=== PATIENT | male | born 1965 | race Caucasian/White ===

== ENCOUNTER 2020-08-06 19:38 | Emergency (ER) | payer BC, SELFPAY ==
[2020-08-06 19:40] VITALS: BP 144/92; PULSE 101; RESP 16; TEMP 35.9; O2SAT 99; BMI 22.4
--- NOTE | 2020-08-06 19:56 | ED.VIS.GEN ---
History of Present Illness Chief Complaint: Wound Detail of Chief Complaint: Chin wound Informant: Patient Onset: Days Narrative: Patient reports having MRSA drained from a wound on his chin several years ago. He continues to have intermittent drainage from that spot. 2 days ago the drainage stopped and the area has become more swollen. He believes this is consistent with another MRSA infection. He denies fever or chills. Past Medical History - Allergies and Home Meds Allergies/Adverse Reactions: Allergies No Known Allergies Allergy (Verified 08/06/20 19:39) Past Medical History: - - MRSA infection Lives: Spouse/ Significant Other Smoking Status: Current every day smoker Review of Systems General: Denies: Chills, Fever Eyes: Denies: Visual changes - bilaterally ENT: Denies: Bilateral ear pain Cardiovascular: Denies: Chest pain Respiratory: Denies: Dyspnea, Cough Gastrointestinal: Denies: Abdominal pain, Nausea, Vomiting, Diarrhea Musculoskeletal: Denies: Extremity Pain Skin: Reports: Wounds Neurological: Denies: Headache Hematologic: Denies: Easy bruising, Easy bleeding Allergy: Denies: Uticaria Physical Exam Vital Signs/Narrative: Vital Signs Temp Pulse Resp BP Pulse Ox 08/06/20 19:40 96.6 F L 101 H 16 144/92 H 99 Inital Vital Signs reviewed: Yes General: Well nourished, Well developed Head: Normocephalic ENT: Moist mucous membranes, - - Cutaneous abscess over the anterior chin measuring approximately 1 cm in diameter. No fluctuance noted at this time. Patient does have a full robison making visualization difficult. No obvious signs of cellulitis. Neck: Supple Cardiovascular: Regular rate, Regular rhythm, No murmurs Respiratory: No distress, CTA bilaterally Abdomen: Soft, Nontender Neurological: Alert, Oriented x3 Psychological: Normal affect Diagnostic/Tx/Re-eval - Medical Decision Making Patient be treated with Bactrim and Keflex, first doses given here. ED Disposition - Plan for ED Patient: Disposition: Home or Assisted Living Diagnosis: Abscess Instructions: ED Abscess Antibiotic Treatment Only Prescriptions: Smz/Tmp Ds [Bactrim Ds] 1 tab PO BID #20 tab Transmission Status: Pending to [facility] Cephalexin [Keflex] 500 mg PO Q6 #40 cap Transmission Status: Pending to [facility]
[2020-08-06] MEDS: Cephalexin 250 MG Capsule 500 MG PO (20:21)
[2020-08-06] MEDS: Smz/Tmp Ds Tablet 1 TABLET PO (20:21)
== END 2020-08-06 20:24 | disposition home or self-care (01) ==
LOC: ED 20:12
PROVIDERS: Emergency Provider Emergency Medicine
DX: L02.01 Cutaneous abscess of face (principal); F17.200 Nicotine dependence, unspecified, uncomplicated; Z86.14 Personal history of Methicillin resistant Staphylococcus aureus infection
CPT/HCPCS: 99283